=== PATIENT | male | born 1940 | race Caucasian/White ===

== ENCOUNTER 2016-04-13 05:43 | Day surgery (SDC) | payer MEDICARE, SELFPAY ==
[2015-11-26 10:10] VITALS: BMI 27.8
[2016-04-13] MEDS ORDERED: Levofloxacin 500 mg/100 ml D5W 500 MG/100 ML RTU IV ONE (06:05)
[2016-04-13 06:40] LABS: AUTOMATED BASOPHIL 1.1 % (0-2); AUTOMATED EOSINOPHIL 3.7 % (0-5); AUTOMATED LYMPH 19.6 % (17-44); AUTOMATED MONOCYTE 14.8 % (3-10); AUTOMATED NEUTROPHIL 60.8 % (45-76); MPV 8.6 fL (7.4-10.4)
[2016-04-13 06:42] LABS: BLOOD UREA NITROGEN 28 MG/DL (9-20); CALCIUM 8.6 MG/DL (8.4-10.2); CALCULATED OSMOLALITY 257 MOs/Kg (270-290); CHLORIDE 94 mEq/L (98-107); GLUCOSE 92 MG/DL (70-99); SODIUM LEVEL 130 mEq/L (137-146)
--- NOTE | 2016-04-13 07:09 | HIM.ANES ---
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) BENIGN ESSENTIAL MICROSCOPIC HEMATURIA (04/13/16) Consented Procedure: TRANSURETHRAL RESECTION OF BLADDER TUMOR - Focused Review of Systems Cardiac History: Yes: Hx Hypertension, Hx Heart Attack (2007), Hx Cardiac Catheterization, Hx Coronary Stent (2007), Hx Cardia Arrhythmia (H/O V- TACH), Hx Cardiac Disorders, Hx Abdominal Aortic Aneurysm (REPAIRED 2014), Hx Abnormal Cholesterol/Hyperlipidemia, Hx Congestive Heart Failure (COMPENSATED) HEENT: Yes: Cataracts, Cataract Removal (01/2016), Hx Vision Problem (READING GLASSES), Other HEENT Problems Hx Other HEENT Surgery: TONSILECTOMY Respiratory: Yes: Hx Emphysema (PER CT SCAN) Gastrointestinal: Yes: Hx Gastroesophageal Reflux Disease (CONTROLLED WITH DIET) , Hx Gastrointestinal Disorders Neurological/Musculoskeletal: Yes: Hx Syncope (RESOLVED), Hx Neurological Disorders Psychological: No Hx Mental/Emotional Disorders Blood/Autoimmune: Yes: Hx Anemia (02/19/2016 HGB 11.4 HCT 32.8) No: Hx AIDS, Hx Hepatitis (type) Smoking Status: Heavy tobacco smoker (5 or more cigarettes/day or daily pipe/ cigar) Hx Echocardiogram (date): Yes (12/14/2015 EF 63%, MOD LT ATRIAL DILATION, BORDERLINE ELEVATED PA PRESSURE) Hx Chest Xray (date): Yes (12/03/2015 HYPERAERATION) Surgical History: Yes: T&A Other Surgical History: TONSILECTOMY AAA REPAIR 2014 - Focused Physical Exam NPO since: 04/12/16 2100 Mallampati: Class II Thyromental Distance: Greater than 3 Neck: Limited Range of Motion Dental: Removable Dental Work Cardiovascular/Chest: Normal Respiratory: Lungs clear Any problems with anesthesia, including nausea and vomiting?: No Any relatives with a history of Malignant Hyperthermia?: No Does patient have a history of Malignant Hyperthermia?: No Beta Sosa given (if appropriate): N/A Does the patient have a history of Motion Sickness-: No Other: CBC/BMP/Other 04/13/16 06:07 04/13/16 06:07 Allergies Allergy/AdvReac Type Severity Reaction Status Date / Time hydrochlorothiazide Allergy See Verified 04/13/16 06:31 Comments Home Medications Medication Instructions Recorded Last Taken Type Amiodarone HCl [Cordarone] 200 mg PO DAILY 11/26/15 04/13/16 05:00 History Aspirin [Adult Low Dose Aspirin EC] 81 mg PO DAILY 11/26/15 04/12/16 07:00 History Clopidogrel Bisulfate [Plavix] 75 mg PO DAILY 11/26/15 04/06/16 History Finasteride [Proscar] 5 mg PO DAILY 11/26/15 04/12/16 07:00 History Niacin [Niaspan] 1,000 mg PO BID 11/26/15 04/12/16 18:00 History [place]-3 Acid Ethyl Esters [Lovaza] 1 gm PO BID 11/26/15 04/12/16 18:00 History Tamsulosin HCl [Flomax] 0.4 mg PO DAILY 11/26/15 04/12/16 21:00 History Cefadroxil 500 mg PO BID 04/13/16 04/12/16 21:00 History Height and Weight Patient's height 6 ft Patient's weight 86.183 kg BMI 27.8 Vital Signs Temperature 98.0 F 04/13/16 06:37 Pulse Rate 70 04/13/16 06:37 Respiratory Rate 18 04/13/16 06:37 Blood Pressure 149/71 04/13/16 06:37 Pulse Oxygen Saturation 98 04/13/16 06:37 METS - Level of Activity: Eating, Dressing, walking around house, dishwashing - Anesthetic Plan Anesthesia Type: General ASA Class: 3 -: I have examined this patient and reviewed the medical record. The patient has been assessed prior to anesthesia. Risks and benefits of anesthesia and anesthetic technique options have been discussed and all questions answered. The patient accepts the risk and desires me to proceed with the planned anesthetic.
[2016-04-13] MEDS ORDERED: hydrALAZINE 20 MG/ML VIAL IV PRN (07:11)
[2016-04-13] MEDS ORDERED: FENTANYL 100 MCG/2 ML VIAL IV PRN ×2 (07:11)
[2016-04-13] MEDS ORDERED: ONDANSETRON HCL 4 MG/2 ML VIAL IV PRN ×2 (07:11→10:52)
[2016-04-13] MEDS ORDERED: ONDANSETRON HCL 4 MG ODT TAB PO PRN (07:11)
[2016-04-13] MEDS ORDERED: HYDROmorphone 1 MG INJECTION IV PRN ×2 (07:11)
[2016-04-13] MEDS ORDERED: MEPERIDINE 25 MG/ML TUBEX IV PRN (07:11)
[2016-04-13] MEDS ORDERED: LABETALOL 20 MG/4 ML SYRINGE IV PRN (07:11)
--- NOTE | 2016-04-13 09:42 | CAPUEKG ---
[place], [place] Test Date: 2016-04-13 Pat Name: FRANCES RICHARDS Department: Room: Gender: Male Data Reporting Analyst: [email or web address] : Requested By: Order Number: Reading MD: Sonido Soto MD Measurements Intervals [place] Rate: 76 P: 69 LA: 154 QRS: -10 QRSD: 104 T: 73 QT: 448 QTc: 504 Interpretive Statements Normal sinus rhythm Cannot rule out Inferior infarct, age undetermined Anterior infarct, age undetermined Prolonged QT Abnormal ECG Electronically Signed On 04-13-16 09:42:10 EST by Sonido Soto MD <[email or web address]> [id number]
[2016-04-13] MEDS ORDERED: HYDROCODONE 5 MG/ACETAMIN 325 MG TAB PO PRN (10:52)
[2016-04-13] MEDS ORDERED: Vaccine Screening Complete SCH (11:00)
--- NOTE | 2016-04-13 12:43 | SC.ANESPOS ---
Post-Anesthesia Note LOC: Fully Awake Post-Anesthesia Assessment: Awake, Returned to Baseline, Hemodynamically Stable , Pain Control Adequate Phase I & II Recovery Complete: Yes Apparent Anesthesia Complication: No : N PACU Discharge Time: 09:50 - Vital Signs Blood Pressure: 161/85 Pulse: 66 Resp Rate: 18 O2 Sat: 96 Temp: 98.4 F - Comments Anesthesia Discharge Time Report Time 09:50
[2016-04-13] MEDS: LR 1,000 ML IV SCH ×2 (13:50→15:09)
[2016-04-13] MEDS ORDERED: PROPOFOL 200 MG/20 ML VIAL IV ONE (14:57)
[2016-04-13] MEDS ORDERED: ONDANSETRON HCL 4 MG/2 ML VIAL IV ONE (14:57)
[2016-04-13] MEDS ORDERED: FUROSEMIDE 20 MG/2 ML VIAL IM ONE (14:57)
[2016-04-13] MEDS ORDERED: FENTANYL 100 MCG/2 ML VIAL IV ONE (14:57)
[2016-04-13] MEDS ORDERED: MIDAZOLAM 2 MG/2 ML VIAL IV ONE (14:57)
[2016-04-13] MEDS ORDERED: DEXAMETHASONE 4 MG/ML VIAL IV ONE (14:57)
[2016-04-13] MEDS ORDERED: LIDOCAINE 4% 5 ML AMPULE NEB ONE (14:57)
[2016-04-13] MEDS ORDERED: TAMSULOSIN HCL 0.4 MG CAP PO SCH (21:00)
[2016-04-13] MEDS: OMEGA-3-ACID ETHYL ESTERS 1000 MG CAP PO SCH (21:25)
[2016-04-13] MEDS: [UNRECOGNIZED DRUG - OTHER] PO SCH (21:25)
[2016-04-14] MEDS: LR 1,000 ML IV SCH ×2 (00:45→13:09)
[2016-04-14] MEDS ORDERED: Levofloxacin 500 mg/100 ml D5W 500 MG/100 ML RTU IV SCH (08:00)
[2016-04-14] MEDS: OMEGA-3-ACID ETHYL ESTERS 1000 MG CAP PO SCH (08:21)
[2016-04-14] MEDS: [UNRECOGNIZED DRUG - OTHER] PO SCH (08:21)
[2016-04-14] MEDS ORDERED: AMIODARONE 200 MG TAB PO SCH (09:00)
[2016-04-14] MEDS ORDERED: FINASTERIDE 5 MG TAB PO SCH (09:00)
[2016-04-14 10:51] VITALS: BP 126/66; PULSE 66; TEMP 97.9
--- NOTE | 2016-04-14 12:32 | PCM.UROPRO ---
Chief Complaint: VOIDING WELL FOLLOWING CATHETER REMOVAL--URINE IS TEA COLORED Post Op Day #: 1 Post-op Assessment: Reports: No new complaints, Feels better, Pain is less, Voiding without difficulty Patient care reviewed: Yes Patient care reviewed and discussed with Nursing - Physical Exam Vital Signs: Temperature: 97.9 F (04/14/16 10:49) HR: 66 (04/14/16 10:49) RR: 20 (04/14/16 10:49) BP: 126/66 (04/14/16 10:49) Pulse Ox: 99 (04/14/16 10:49) General: Alert, Oriented x3 HEENT: Normal Respiratory: Normal - CTA Result Diagrams: 04/13/16 06:07 04/13/16 06:07 Plan: DISCHARGE HOME FINAL DX---BLADDER TUMOR CONDITION --STABLE FOLLOW UP---MONDAY MEDS--CIPRO/ LORTAB
--- NOTE | 2016-04-21 14:46 | HIMOP ---
DATE OF PROCEDURE: 04/13/2016 PREOPERATIVE DIAGNOSIS: Gross hematuria with bladder tumor. POSTOPERATIVE DIAGNOSIS: Gross hematuria with bladder tumor. PROCEDURE PERFORMED: Transurethral resection of bladder tumors. ANESTHESIA: General. SURGEON: Nestor Arguello M.D. DESCRIPTION: This patient was taken to the operating room, was given general anesthesia. After that, he was put on lithotomy position, and he was prepped and draped in usual sterile fashion. Urethra was calibrated to 28-[place] and subsequently a continuous flow resectoscope was introduced and using a loop electrode, dissection of both large papillary tumors are carried out first on the right side then on the left side. Some deeper tissue and surrounding tissue was also resected. Complete hemostasis was secured. All resected chips were irrigated out and sent to pathological examination. An 18-[place] catheter left in temporarily. The patient tolerated the procedure well and was returned to recovery area in satisfactory condition. [id number]
== END 2016-04-14 14:58 | disposition home or self-care (01) ==
LOC: SDC 05:43 → MPS3 10:28
PROVIDERS: ADMIT Urology; ATTEND Urology
PROC: 0TBB8ZX Excision of Bladder, Via Natural or Artificial Opening Endoscopic, Diagnostic (ICD-10-PCS; principal; 2016-04-13 07:15)
DX: C67.8 Malignant neoplasm of overlapping sites of bladder (principal); R31.0 Gross hematuria
CPT/HCPCS: 52235; 80048; 85025; 86850; 86900; 86901; 93005; A9270; G0378; J1100; J1940; J1956; J2405; J2550; J3010; J3490; J2250